=== PATIENT | male | born 1970 | race Caucasian/White ===

== ENCOUNTER 2024-10-29 07:30 | Day surgery (SDC) | payer BC, SELFPAY ==
[2024-10-29] VITALS (8 sets, daily range): BP systolic 105–129; BP diastolic 65–96; PULSE 77–83; RESP 14–18; TEMP 36.2–36.8; O2SAT 92–100; BMI 36.8
--- NOTE | 2024-10-29 08:17 | PRE.ANES_ITS ---
ASA Classification* ASA Classification ASA Classification: 2 Assessment & Plan Anesthesia* Anesthesia Assessment Anesthesia Assessment: Discussed sedation and/or anesthesia options, risks, benefits, and alternatives with patient/parents/legal guardian/POA. Questions invited. The patient/parents/legal guardian/POA seems to understand and agrees to proceed with anesthesia plan. Reviewed the physical assessment, medical history, allergy history and patient home medications list prior to surgery/procedure/anesthetic and documented any changes. Performed airway and anesthesia risk assessments. Anesthesia Type Anesthesia Type: MAC History Source History Obtained from:: Patient and Chart Anesthesia Focused Assessment* Temperature: 97.1 F Pulse Rate: 83 Blood Pressure: 129/96 Respiratory Rate: 16 Pulse Ox: 100 Oxygen Delivery Method: Room Air Airway Assessment Mouth opens: 2 cm Mallampati Score: III Teeth Condition: Chipped/Broken (Tooth #25 is chipped. Most of the teeth are tight.) Neck Range of motion (ROM): Full ROM Focused Labs Anesthesia Preop lab: CBC CHEMISTRY COAG Pre-Assessment Diagnosis/Proposed Procedure Planned Operative Procedure(s): COLONOSCOPY Anesthesia History Anesthesia History - correctional casework specialist: Anesthesia History - correctional casework specialist Hx Hospitalization No 10/24/24 09:48 Any Problems With Anesthesia No 10/24/24 09:48 Cholinesterase deficiency No 10/24/24 09:48 You/Your Family Experience No 10/24/24 09:48 fever (hyperthermia) with Relationship Recent Exposure to Contagious No 10/29/24 07:59 Disease Does patient have nerve No 10/24/24 09:48 stimulator Patient instructed to have device shut off --Does patient have Pacemaker No 10/29/24 07:59 or ICD? When Was Last Pacemaker Check QUESTION #4 FULL TEXT: You/Your Family Experience fever (hyperthermia) with Anesthesia Last Oral Intake Last Oral intake: Last Oral Intake NPO since 04:00 10/29/24 07:59 Meds taken in AM with sips of No 10/29/24 07:59 water? Meds patient instructed to take am of surgery Any additional information?: Yes NPO since: 04:00 (Patient finished prep at 4 AM.) PONV PONV - correctional casework specialist: PONV - correctional casework specialist Female No 10/24/24 09:48 HX of Motion Sickness No 10/24/24 09:48 HX of N/V After Surgery No 10/24/24 09:48 Non-Smoker Yes 10/24/24 09:48 Duration of Surgery greater No 10/24/24 09:48 than 60 minutes Number of Risk Factors 1 10/24/24 09:48 PONV Score Low Risk 10/24/24 09:48 Height & Weight Height & Weight: Anesthesia: Height & Weight Height 5 ft 5 in 10/29/24 07:59 Weight: 100.6 kg 10/29/24 07:59 Body Mass Index (BMI) 36.8 10/29/24 07:59 Respiratory Assessment Respiratory Assessment - correctional casework specialist: Respiratory Tract Infection Hx - correctional casework specialist Hx Respiratory Tract Infection No 10/24/24 09:48 STOP Sleep Apnea STOP Sleep Apnea - correctional casework specialist: STOP Sleep Apnea - correctional casework specialist Hx Hypertension Yes: CONTROLLED ON MED 10/24/24 09:48 Hx Sleep Apnea No 10/24/24 09:48 CPAP BIPAP Do you snore loudly (louder Yes 10/24/24 09:48 than talking or can be heard Do you often feel tired/ No 10/24/24 09:48 fatigued/ sleepy during daytime? Has anyone observed you stop No 10/24/24 09:48 breathing during sleep? STOP Results Positive 10/24/24 09:48 QUESTION #5 FULL TEXT : Do you snore loudly (louder than talking or can be heard through closed doors)? Tobacco Use History Tobacco Use History - correctional casework specialist: Tobacco Use History - correctional casework specialist Tobacco Use Smoking Status Former smoker 10/24/24 09:48 Hx Tobacco Use No 10/24/24 09:48 Years Smoking Packs Smoked per Day Smoking Cessation Date was No - quit smoking greater 10/24/24 09:48 within the last 15 years than 15 years ago Hx Smoking Cessation Date Hx Smoking Cessation Counseling Hematologic Medial History Hematologic Hx - correctional casework specialist: Hematologic Medical Hx - patrol guard Hx of Blood Transfusion No 10/24/24 09:48 Hx of Transfusion in last 3 No 10/24/24 09:48 Months Date of Last Transfusion (if within last 3 months) Ever experience any problems No 10/24/24 09:48 with transfusion(s)? Specify any problems Hx of Preganancy in last 3 N/A 10/24/24 09:48 Months Nurse Filling Out Transfusion VCHRISTIN 10/24/24 09:48 & Questions: Date: 10/24/24 10/24/24 09:48 Time: 09:50 10/24/24 09:48 Patient unable to answer at this time (ie. confused, unrespo /Reproduction History /Reproductive History - correctional casework specialist: /Reproductive Hx- correctional casework specialist Hx Now Gestational Age (in weeks): EDC: Hx Hx Para Hx Section SAB PFSH Medical History High cholesterol History of hiatal hernia Gastric reflux Former smoker History of stress test Gout HTN (hypertension) Home Medications ?Medication ?Instructions ?Recorded ?Last Taken ?Type aspirin 81 mg tablet,delayed 81 mg PO QDAY 09/27/24 History release lisinopril 10 mg tablet 10 mg PO QDAY 09/27/2410/28 History omeprazole 40 mg capsule,delayed 40 mg PO QAM 09/27/24 10/28/24 History release vitamin C 500 mg-multivitamin with 1 tab PO DAILY 09/0810/24/24 History minerals chewable tablet (Emergen-C) naproxen 500 mg tablet 500 mg PO BID PRN PRN pain 0 10/24/24 10/27/24 History Allergy/AdvReac Type Severity Reaction Status Date / Time amoxicillin (From Augmentin) Allergy Intermediate PT UNSURE Verified 10/29/24 07:57 OF REACTION ceftriaxone (From Rocephin) Allergy Intermediate PT UNSURE Verified 10/29/24 07:57 OF REACTION clavulanic acid (From Allergy Intermediate PT UNSURE Verified 10/29/24 07:57 Augmentin) OF REACTION Family History Father Asthma Mother Lupus Surgical History Hx of wisdom tooth extraction History of esophagogastroduodenoscopy (EGD) Social History Smoking Status: Former smoker Review of Systems (Anesthesia) ROS Narrative System reviewed and no additional complaints, except as documented.
--- NOTE | 2024-10-29 08:30 | COLBX_PTH ---
PATIENT: CHIQUITA FAN LOC: [facility] U#:[id number] AGE/SX: 54/M ROOM: RE10/29/[address]: Dr. Pancho Love MD : 1970 BED: DIS: 10/29/2024 SPEC #: [id number] RECD: 10/29/24 11:22 STATUS: PRESTON REDayanna #: [id number] JESÚS: 10/29/24 08:[address]: Pancho Love DEPT: SURGICAL PATHOLOGY RECD BY: Pablo Neville ENTERED: 10/29/24 11:22 SP TYPE: COLON BX OTHR DR: Dr. Brando Hunt MD Tissues: A - Rectum, NOS B - COLON BIOPSY Procedures: Surgery Specimen Level IV HEADER OPERATION: Colonoscopy, polypectomy PRE-OP DIAGNOSIS: Positive colorectal cancers screening using Cologuard test TISSUE SUBMITTED: A- Rectal polyp, B- Ileocecal valve biopsy MICROSCOPIC DIAGNOSIS A. Rectum, polyp, biopsy: * Hyperplastic polyp - see note. Note: The tissue is distorted with thermal artifact. B. Ileocecal valve, biopsy: * Focal atypia with associated active inflammation, favor reactive change - see note. * No definitive dysplasia is seen in these sections (deeper sections examined). Note: The active inflammation raises consideration of medication injury (eg: NSAIDs), ischemia, infection, and less likely bowel prep artifact. Recommend correlation with clinical and endoscopic findings. MICROSCOPIC DESCRIPTION Slides are reviewed. GROSS DESCRIPTION A. Received in formalin in a container labeled with the patient's name, date of , and rectal polyp are 3 beck-pink fragments and strips of mucosal tissue ranging from 0.2 x 0.2 x 0.2 cm to 0.9 x 0.2 x 0.2 cm. Submitted in toto in A1. B. Received in formalin in a container labeled with the patient's name, date of , and ileocecal valve biopsy are 3 beck-pink fragments of mucosal tissue ranging from 0.2 x 0.1 x 0.1 cm to 0.3 x 0.3 x 0.2 cm. Submitted in toto in B1. [facility] 10-29-2024 CPT:49416y4
--- NOTE | 2024-10-29 08:33 | PCM.HP.BLA ---
History and Physical Date of Admission: 10/29/24 Intake Vital Signs 09/27/2514:02 Weight: 227 lb BP 124/83 H Blood Pressure Location Rt brachial Position Sitting Respiration 17 Pulse 80 Pulse Source Monitor Pulse Oximetry (%) 96 Oxygen Delivery Method room air Intake Visit Reasons: POSITIVE COLOGUARD Chief Complaint: + cologuard Is patient in pain?: No Allergies amoxicillin (From Augmentin) Allergy (Intermediate, Verified 09/27/24 15:03) PT UNSURE OF REACTIONceftriaxone (From Rocephin) Allergy (Intermediate, Verified 09/27/24 15:03) PT UNSURE OF REACTIONclavulanic acid (From Augmentin) Allergy (Intermediate, Verified 09/27/24 15:03) PT UNSURE OF REACTION Medications ?Medication ?Instructions ?Recorded ?Confirmed ?Type aspirin 81 mg tablet,delayed 81 mg PO QDAY 09/27/24 09/27/24 History release lisinopril 10 mg tablet 10 mg PO QDAY 09/27/24 09/27/24 History omeprazole 40 mg capsule,delayed 40 mg PO QAM 09/27/24 09/27/24 History release vitamin C 500 mg-multivitamin with 1 tab PO BID 09/27/24 09/27/24 History minerals chewable tablet (Emergen-C) PFSH Medical History (Updated 09/27/24 @ 15:00 by Becky Higgins) Gout HTN (hypertension) Family History (Updated 09/27/24 @ 15:02 by Becky Higgins) Father AsthmaMother Lupus HPI HPI HPI: Patient is a 54-year-old male with positive Cologuard. He has never had a colonoscopy. He denies abdominal pain or blood in the stool. He has no family history of colon cancer. ROS General General: No weight change, appetite, fatigue, colon cancer, breast cancer or weakness HEENT HEENT: No difficulty swallowing, eye injury, eye surgery, swollen glands or hoarseness Endo Endocrine: No thyroid disease, diabetes mellitus, thyroid cancer, Hair loss, heat intolerance or cold intolerance Skin Skin: No rash or changing moles Musc Musculoskeletal: Yes gout; No back problems, arthritis, rheumatoid arthritis or joint pain Cardio Cardiovascular: Yes high blood pressure; No murmur, pacemaker, heart disease, atrial fibrillation, heart attack, heart stent, palpitations, shortness of breath with exertion or chest pain Psych Psychiatric: No depression, anxiety or hearing voices Resp Respiratory: No shortness of breath, No sleep apnea, No cough, No COPD, No asthma, No emphysema and No wheezing Gastro Gastrointestinal: No abdominal pain, No nausea or vomiting, No diarrhea, No constipation, No blood in stool, Yes acid reflux, No hemorrhoids, No ulcers, No gallbladder problem and No black,tarry stools Aly Hematologic: No blood thinners, No blood disorders, No bleeding, No anemia and No blood clots Neuro Neurologic: No system reviewed and no additional complaints, except as documented, No as per HPI, No abnormal gait, No abnormal hearing, No abnormal movements, No abnormal speech, No behavioral changes, No burning sensations, No confusion, No convulsions, No disequilibrium, No dizziness, No localized weakness, No frequent falls, No headache(s), No lack of coordination, No loss of vision, No memory loss, No numbness, No other visual disturbances, No radicular pain, No restless legs, No sensory deficit, No syncope, No tingling, No tremor(s), No weakness and No other Exam Const General: cooperative Orientation: alert and oriented x3 HENMT Head: normal to inspection Neck Neck: normal visual inspection and full ROM Chest Chest palpation & inspection: normal inspection of the chest Resp Effort & Inspection: normal respiratory effort Auscultation: clear to auscultation bilaterally Cardio Rate: regular rate Rhythm: regular rhythm GI Inspection: non-distended Palpation: soft and nontender Skin General: no rashes or lesions noted Neuro General: patient alert and patient oriented x3 Extrem General: full ROM Psych Appearance: grossly normal Mental Status: mental status grossly normal Assessment and Plan Assessment and Plan (1) Positive colorectal cancer screening using Cologuard test: Status: Acute Plan: I explained endoscopy in detail to the patient. I explained the risks including but not limited to stroke or heart attack with anesthesia, perforation of the GI tract, bleeding, infection. I explained that any of these could necessitate further emergency surgery. The patient understands and all questions were answered sufficiently. The patient wishes to proceed with procedure. Pancho Love MD Pager: [facility] [address] [place] [address], [address] [place] [address] Office: I have examined the patient and the H&P has been reviewed. There are no clinical changes since date of exam.
--- NOTE | 2024-10-29 08:48 | PCM.POST.ANE ---
Anesthesia: Postop Eval I Current Vital Signs Temperature: 97.5 F Pulse Rate: 77 Blood Pressure: 117/65 Respiratory Rate: 14 Pulse Ox: 92 Oxygen Delivery Method: Room Air Assessment Airway patent: Yes Spontaneous unlabored respirations: Yes Mental status: Awake nausea: No Vomiting: No Anesthesia Complication: No Fluid Hydration Crystalloid volume administer (ml): 10 Total IV fluid infused: 10 Progress Note Anesthesia document: Postop Eval 1 completed: Yes
--- NOTE | 2024-10-29 09:04 | OP.COLON_ITS ---
Patient Name: Cornelio Franco Procedure Date: 10/29/2024 8:38 AM Date of : 1970 Age: 54 Procedure: Colonoscopy Indications: Positive Cologuard test Providers: Pancho Love MD Referring MD: Brando Hunt Medicines: Propofol per Anesthesia Patient Profile: This is a 54 year old male. Refer to note in patient chart for documentation of history and physical. Last Colonoscopy: none. The patient's first colonoscopy is today. Complications: No immediate complications. Estimated blood loss: Minimal. Procedure: Pre-Anesthesia Assessment: - Prior to the procedure, a History and Physical was performed, and patient medications and allergies were reviewed. The patient's tolerance of previous anesthesia was also reviewed. The risks and benefits of the procedure and the sedation options and risks were discussed with the patient. All questions were answered, and informed consent was obtained. Prior Anticoagulants: The patient has taken no anticoagulant or antiplatelet agents. After reviewing the risks and benefits, the patient was deemed in satisfactory condition to undergo the procedure. After I obtained informed consent, the scope was passed under direct vision. Throughout the procedure, the patient's blood pressure, pulse, and oxygen saturations were monitored continuously. The Colonoscope was introduced through the anus and advanced to the cecum, identified by appendiceal orifice and ileocecal valve. The colonoscopy was performed without difficulty. The patient tolerated the procedure well. The quality of the bowel preparation was good. The ileocecal valve, appendiceal orifice, and rectum were photographed. Scope In: 8:44:51 AM Scope Withdrawal Time 0 hours 5 minutes 47 seconds Scope Out: 8:55:37 AM Total Procedure Duration Time 0 hours 10 minutes 46 seconds Findings: A medium polyp was found in the rectum. The polyp was removed with a hot snare. Resection and retrieval were complete. A continuous area of nonbleeding ulcerated mucosa with no stigmata of recent bleeding was present at the ileocecal valve. Biopsies were taken with a cold forceps for histology. Impression: - One medium polyp in the rectum, removed with a hot snare. Resected and retrieved. - Mucosal ulceration. Biopsied. Recommendation: - Discharge patient to home. - Resume previous diet. - Continue present medications. - Await pathology results. - Repeat colonoscopy in 5 years for surveillance. Procedure Code(s): --- Professional --- 17247, Colonoscopy, flexible; with removal of tumor(s), polyp(s), or other lesion(s) by snare technique 75942, 59, Colonoscopy, flexible; with biopsy, single or multiple Diagnosis Code(s): --- Professional --- D12.8, Benign neoplasm of rectum K63.3, Ulcer of intestine R19.5, Other fecal abnormalities CPT copyright 2021 [employer]. All rights reserved. The codes documented in this report are preliminary and upon nuclear spectroscopist review may be revised to meet current compliance requirements. Pancho Love MD 10/29/2024 9:03:53 AM This report has been signed electronically. Number of Addenda: 0 Note Initiated On: 10/29/2024 8:38 AM
--- NOTE | 2024-10-29 09:04 | OP.CCLET_ITS ---
10/29/2024 Brando Hunt Re : Colonoscopy procedure for Cornelio Franco Rina Hunt This procedure was performed on Tuesday, October 29, 2024. My impressions and recommendations are as follows: Impressions : - One medium polyp in the rectum, removed with a hot snare. Resected and retrieved. - Mucosal ulceration. Biopsied. Recommendations : - Discharge patient to home. - Resume previous diet. - Continue present medications. - Await pathology results. - Repeat colonoscopy in 5 years for surveillance. My findings are described in the full procedure note, which is enclosed. If I can be of further assistance, please feel free to contact me at Doctor phone number(s): , Work: . Sincerely, Pancho Love MD 10/29/2024 9:03:53 AM This report has been signed electronically.
--- NOTE | 2024-10-29 09:41 | POSTOPAN2_ITS ---
Anesthesia Postop Eval I Sum Postop Eval Completion status Anesthesia document: Postop Eval 1 completed: Yes Anesthesia Postop Eval I Summary Anesthesia Postop Eval I Summary: Anesthesia Postop Eval I: Assessment Summary Airway patent Yes 10/29/24 08:49 [email or web address] Spontaneous unlabored Yes 10/29/24 08:49 [email or web address] respirations Mental status Awake 10/29/24 08:49 [email or web address] nausea No 10/29/24 08:49 [email or web address] [email or web address] Vomiting No 10/29/24 08:49 [email or web address] Anesthesia Postop Eval I: Fluid Summary Crystalloid volume administer 10 10/29/24 08:49 [email or web address] (ml) Colloids volume administered ( ml) Blood Product volume administered (ml) Total IV fluid infused 10 10/29/24 08:49 [email or web address] Anesthesia Postop Eval I: Summary Notes Anesthesia Complication No 10/29/24 08:49 [email or web address] Anesthesia Complication Comment: Post-operative progress note Anesthesia: Postop Eval II Evaluation Mental status: Awake and Calm Pain Level: 0 nausea: No Vomiting: No Complications Anesthesia Complication: No
--- NOTE | 2024-10-29 09:41 | PCM.POSTANE2 ---
Anesthesia Postop Eval I Sum Postop Eval Completion status Anesthesia document: Postop Eval 1 completed: Yes Anesthesia Postop Eval I Summary Anesthesia Postop Eval I Summary: Anesthesia Postop Eval I: Assessment Summary Airway patent Yes 10/29/24 08:49 [email or web address] Spontaneous unlabored Yes 10/29/24 08:49 [email or web address] respirations Mental status Awake 10/29/24 08:49 [email or web address] nausea No 10/29/24 08:49 [email or web address] Vomiting No 10/29/24 08:49 [email or web address] Anesthesia Postop Eval I: Fluid Summary Crystalloid volume administer 10 10/29/24 08:49 [email or web address] (ml) Colloids volume administered ( ml) Blood Product volume administered (ml) Total IV fluid infused 10 10/29/24 08:49 [email or web address] Anesthesia Postop Eval I: Summary Notes Anesthesia Complication No 10/29/24 08:49 [email or web address] Anesthesia Complication Comment: Post-operative progress note Anesthesia: Postop Eval II Evaluation Mental status: Awake and Calm Pain Level: 0 nausea: No Vomiting: No Complications Anesthesia Complication: No
== END 2024-10-29 09:53 | disposition home or self-care (01) ==
LOC: EN 07:32 → AC 07:33
PROVIDERS: PCP Family Medicine; Referring Provider Family Medicine; Visit Provider Surgery
PROC: 0DJD8ZZ Inspection of Lower Intestinal Tract, Via Natural or Artificial Opening Endoscopic (ICD-10-PCS; CPT 45378; principal; 2024-10-29 08:25)
DX: D12.8 Benign neoplasm of rectum (principal); K63.3 Ulcer of intestine; R19.5 Other fecal abnormalities; K21.9 Gastro-esophageal reflux disease without esophagitis; I10 Essential (primary) hypertension; Z79.82 Long term (current) use of aspirin; Z79.85 Long-term (current) use of injectable non-insulin antidiabetic drugs; Z79.899 Other long term (current) drug therapy; Z87.891 Personal history of nicotine dependence
CPT/HCPCS: 45385; 45380; 88305; A4216